=== PATIENT | female | born 1980 | race Two or more races ===

== ENCOUNTER 2017-12-23 21:26 | Emergency (ER) | payer OTHER ==
[~2017-12-23] VITALS: Ht 162.6 cm; Wt 68.0 kg
[2017-12-24] MEDS ORDERED: DOLOGESIC 500-1 EACH PO (02:52)
== END 2017-12-24 02:58 ==
LOC: ER 21:26
DX: G43.809 Other migraine, not intractable, without status migrainosus (principal); K29.70 Gastritis, unspecified, without bleeding; R11.2 Nausea with vomiting, unspecified